=== PATIENT | male | born 1945 | race Caucasian/White ===

== ENCOUNTER 2017-01-06 12:11 | Emergency (ER) | payer MEDICARE, OTHER ==
[~2017-01-06] VITALS: Ht 170.2 cm; Wt 81.8 kg
[~2017-01-06 12:11] MED LIST: BUPR75 PO; HYDR25TA PO; LOSA50TA37 PO; METF500T4 PO; OMEP20 PO; TERA1 PO
[2017-01-06 15:30] LABS: APPEARANCE,URINE TURBID (CLEAR); GLUCOSE, URINE (UA) NEGATIVE (NEGATIVE); KETONES,URINE NEGATIVE (NEGATIVE); LEUKOCYTE ESTERASE ,URINE LARGE (NEGATIVE); OCCULT BLOOD,URINE LARGE (NEGATIVE); PH,URINE 5.5 (5.0-8.0); PROTEIN,URINE TRACE (NEGATIVE)
[2017-01-06 15:33] LABS: ADD UA MICROSCOPIC YES
[2017-01-06 15:34] LABS: RBC,URINE 51-100 /HPF (0-2); SQUAMOUS EPITHELIAL CELL,UR Rare /LPF (None Seen); WBC,URINE >100 /HPF (0-5)
[2017-01-06 16:50] LABS: BASOPHILS # (AUTO) 0.03 K/uL (0.00-0.20); BASOPHILS % (AUTO) 0.5 % (0.0-2.0); EOSINOPHILS # (AUTO) 0.08 K/uL (0.00-0.70); EOSINOPHILS % (AUTO) 1.33 % (1.0-6.0); HEMATOCRIT 38.3 % (41-53); HEMOGLOBIN 12.6 g/dL (13.5-17.5); LYMPHOCYTES # (AUTO) 1.2 K/uL (1.0-4.8); LYMPHOCYTES % (AUTO) 19.6 % (22.0-44.0); MEAN CORPUSCULAR VOLUME 91 fL (80-100); MONOCYTES # (AUTO) 0.4 K/uL (0.1-1.0); MONOCYTES % (AUTO) 6.4 % (2.0-9.0); NEUTROPHILS # (AUTO) 4.4 K/uL (1.8-7.7); NEUTROPHILS % (AUTO) 72.2 % (40.0-70.0); PLATELET COUNT (AUTO) 181 K/uL (150-450); RED CELL DISTRIBUTION WIDTH 12.6 % (11.5-14.5); WHITE BLOOD COUNT (AUTO) 6.1 K/uL (4.5-11.0)
[2017-01-06 16:59] LABS: CREATININE 1.25 mg/dL (0.60-1.30); POTASSIUM 4.2 mmol/L (3.5-5.1)
[2017-01-06 17:07] LABS: ALBUMIN 3.6 g/dL (3.4-5.0); BILIRUBIN,TOTAL 0.7 mg/dL (0.1-1.0); TOTAL PROTEIN, SERUM 8.2 g/dL (6.4-8.2)
[2017-01-06] MEDS ORDERED: CefTRIAXone 1 GM/DEXTROSE 50 ML IV ONE (17:15)
[2017-01-06] MEDS ORDERED: LEVOFLOXACIN 500 MG/D5% WATER 100 ML IV ONE (17:15)
[2017-01-06 19:09] VITALS: BP 118/71
== END 2017-01-06 19:12 | disposition home or self-care (01) ==
LOC: EMS 12:12
DX: N39.0 Urinary tract infection, site not specified (principal); I10 Essential (primary) hypertension; E11.9 Type 2 diabetes mellitus without complications
CPT/HCPCS: 36415; 80053; 81001; 85025; 87040; 87077; 87086; 96365; 96368; 99285; J0696; J1956; 82962

== ENCOUNTER 2018-06-23 18:06 | Inpatient (IN) | payer MEDICARE, OTHER ==
[~2018-06-23] VITALS: Ht 172.7 cm; Wt 95.7 kg
[~2018-06-23 18:06] MED LIST changes: +LOSA50TA25 PO; -LOSA50TA37 PO; +METF-960 PO; -METF500T4 PO
[2018-06-23 18:14] LABS: GLUCOSE,POINT OF CARE 162 MG/DL (70-110)
[2018-06-23] MEDS ORDERED: 0.9% SODIUM CHLORIDE 10 ML SYRINGE IVP PRN (18:45)
[2018-06-23] MEDS ORDERED: SODIUM CHLORIDE 0.9% 1,000 ML IV ONE (19:15)
[2018-06-23 19:21] LABS: BASOPHILS % (AUTO) 0.1 % (0.0-2.0); EOSINOPHILS % (AUTO) 1.1 % (1.0-6.0); HEMATOCRIT 25.1 % (41-53); HEMOGLOBIN 8.8 g/dL (13.5-17.5); LYMPHOCYTES # (AUTO) 0.2 K/uL (1.0-4.8); LYMPHOCYTES % (AUTO) 8.3 % (22.0-44.0); MEAN CORPUSCULAR HEMOGLOBIN 31.9 pg (26.0-34.0); MEAN CORPUSCULAR HGB CONC 35.1 G/dL (31.0-37.0); MEAN CORPUSCULAR VOLUME 91 fL (80-100); MONOCYTES # (AUTO) 0.3 K/uL (0.1-1.0); MONOCYTES % (AUTO) 12.2 % (2.0-9.0); NEUTROPHILS # (AUTO) 1.7 K/uL (1.8-7.7); NEUTROPHILS % (AUTO) 78.3 % (40.0-70.0); PLATELET COUNT (AUTO) 214 K/uL (150-450); RED BLOOD CELL COUNT(AUTO) 2.76 MIL/uL (4.50-5.90); RED CELL DISTRIBUTION WIDTH 12.9 % (11.5-14.5)
[2018-06-23 19:48] LABS: ALBUMIN 2.9 g/dL (3.4-5.0); BILIRUBIN,TOTAL 1.8 mg/dL (0.1-1.0); CALCIUM, TOTAL 7.8 mg/dL (8.8-10.5); CREATININE 1.55 mg/dL (0.60-1.30); POTASSIUM 3.8 mmol/L (3.5-5.1); TOTAL PROTEIN, SERUM 6.5 g/dL (6.4-8.2)
[2018-06-23 20:01] LABS: APPEARANCE,URINE CLOUDY (CLEAR); GLUCOSE, URINE (UA) NEGATIVE (NEGATIVE); KETONES,URINE 15 mg/dL (NEGATIVE); LEUKOCYTE ESTERASE ,URINE SMALL (NEGATIVE); NITRATE,URINE NEGATIVE (NEGATIVE); OCCULT BLOOD,URINE LARGE (NEGATIVE); PROTEIN,URINE POS 1+ (NEGATIVE)
[2018-06-23 20:05] LABS: BILIRUBIN,URINE PRELIM. POSITIVE (NEGATIVE)
[2018-06-23 20:06] LABS: PLATELET MORPHOLOGY COMMENT NORMAL
[2018-06-23 20:08] LABS: BACTERIA,URINE Many /HPF (None Seen); RBC,URINE 26-50 /HPF (0-2); SQUAMOUS EPITHELIAL CELL,UR Few /LPF (None Seen)
[2018-06-23 20:34] LABS: INFLUENZA TYPE A POSITIVE FOR TYPE A (NEGATIVE); INFLUENZA TYPE B NEGATIVE FOR TYPE B (NEGATIVE)
[2018-06-23] MEDS ORDERED: NACL1 PO (20:45)
[2018-06-23] MEDS ORDERED: DIPH50 PO (20:45)
[2018-06-23] MEDS ORDERED: SENN-31 PO (20:45)
[2018-06-23] MEDS ORDERED: CefTRIAXone SODIUM 1 GM in DEXTROSE 5%-WATER 10 ML IV ONE (20:45)
[2018-06-23] MEDS ORDERED: DSS100 PO (20:45)
[2018-06-23] MEDS ORDERED: VITAD1000 PO (20:45)
[2018-06-23] MEDS ORDERED: HYDR25TA PO (20:45)
[2018-06-23] MEDS ORDERED: AMIT50TA3 PO (20:45)
[2018-06-23] MEDS ORDERED: ALFU10TA30 PO (20:45)
[2018-06-23] MEDS ORDERED: MIRALAX PO (20:45)
[2018-06-23] MEDS ORDERED: DULO60CA44 PO (20:45)
[2018-06-23] MEDS ORDERED: GABA-533 PO (20:45)
[2018-06-23] MEDS ORDERED: HYDR-4061 PO (20:45)
[2018-06-23] MEDS ORDERED: FLUT16H NASAL (20:45)
[2018-06-23] MEDS ORDERED: RANI-248 PO (20:45)
[2018-06-23] MEDS ORDERED: METF-446 PO (20:45)
[2018-06-23] MEDS ORDERED: AMLO-511 PO (20:45)
[2018-06-23] MEDS ORDERED: SODIUM CHLORIDE 0.9% 1,500 ML IV ONE (20:45)
[2018-06-23] MEDS ORDERED: SODIUM CHLORIDE 0.9% 100 ML ONE (20:47)
[2018-06-23] MEDS ORDERED: IOVERSOL 320 MG/ML 100 ML VIAL ONE (20:47)
[2018-06-23] MEDS ORDERED: OSELTAMIVIR PHOSPHATE 75 MG CAPSULE PO ONE (21:15)
[2018-06-23 23:09] VITALS: BP 124/85
[2018-06-24] VITALS (7 sets, daily range): BP systolic 109–135; BP diastolic 62–82
[2018-06-24] MEDS ORDERED: ZOLPIDEM TARTRATE 5 MG TABLET PO PRN (00:15)
[2018-06-24] MEDS ORDERED: BISACODYL 10 MG RECTAL RECTAL SUPPOSITORY PR PRN (00:15)
[2018-06-24] MEDS ORDERED: ONDANSETRON HCL 4 MG/2 ML VIAL IVP PRN (00:15)
[2018-06-24] MEDS ORDERED: ACETAMINOPHEN 325 MG TABLET PO PRN (00:15)
[2018-06-24] MEDS ORDERED: PNEUMOCOCCAL VACCINE POLYVALENT 0.5 ML VIAL [PPSV23] IM ONE (01:30)
[2018-06-24] MEDS: MORPHINE SULFATE 2 MG/ML SYRINGE IVP PRN ×2 (02:57→09:16)
[2018-06-24] MEDS: DOCUSATE SODIUM 100 MG CAPSULE PO SCH ×4 (09:00→20:29)
[2018-06-24] MEDS ORDERED: OSELTAMIVIR PHOSPHATE 75 MG CAPSULE PO SCH (09:00)
[2018-06-24] MEDS: AmLODIPine BESYLATE 5 MG TABLET PO SCH (09:01)
[2018-06-24] MEDS: CHOLECALCIFEROL (VIT D3) 1,000 UNITS TABLET PO SCH (09:02)
[2018-06-24] MEDS: GABAPENTIN 300 MG CAPSULE PO SCH ×3 (09:02→20:28)
[2018-06-24] MEDS: ASPIRIN 81 MG EC TABLET PO SCH (09:03)
[2018-06-24] MEDS: PANTOPRAZOLE SODIUM 40 MG/VIAL IVP SCH (09:04)
[2018-06-24] MEDS: FLUTICASONE PROPIONATE 50 MCG/SPRAY 16 GM NASAL SPRAY NASAL SCH (09:05)
[2018-06-24] MEDS: DULoxetine HCL 60 MG CAPSULE PO SCH (09:06)
[2018-06-24] MEDS: AMITRIPTYLINE HCL 50 MG TABLET PO SCH (09:07)
[2018-06-24] MEDS: SODIUM CHLORIDE 1 GM TABLET PO SCH ×3 (09:08→20:29)
[2018-06-24 12:49] LABS: BASOPHILS % (AUTO) 0.1 % (0.0-2.0); EOSINOPHILS % (AUTO) 0.1 % (1.0-6.0); HEMOGLOBIN 8.5 g/dL (13.5-17.5); LYMPHOCYTES # (AUTO) 0.3 K/uL (1.0-4.8); LYMPHOCYTES % (AUTO) 5.9 % (22.0-44.0); MEAN CORPUSCULAR HEMOGLOBIN 32.3 pg (26.0-34.0); MEAN CORPUSCULAR HGB CONC 35.5 G/dL (31.0-37.0); MEAN CORPUSCULAR VOLUME 91 fL (80-100); MONOCYTES # (AUTO) 0.4 K/uL (0.1-1.0); MONOCYTES % (AUTO) 8.2 % (2.0-9.0); NEUTROPHILS # (AUTO) 4.6 K/uL (1.8-7.7); PLATELET COUNT (AUTO) 269 K/uL (150-450); RED BLOOD CELL COUNT(AUTO) 2.65 MIL/uL (4.50-5.90)
[2018-06-24 12:52] LABS: NEUTROPHILS % (AUTO) 85.7 % (40.0-70.0)
[2018-06-24 13:10] LABS: ALBUMIN 2.6 g/dL (3.4-5.0); BILIRUBIN,TOTAL 1.6 mg/dL (0.1-1.0); CALCIUM, TOTAL 7.1 mg/dL (8.8-10.5); CREATININE 1.44 mg/dL (0.60-1.30); TOTAL PROTEIN, SERUM 6.2 g/dL (6.4-8.2)
[2018-06-24] MEDS ORDERED: DEXTROSE 50%-WATER 25 GM/50 ML SYRINGE IVP PRN (16:45)
[2018-06-24] MEDS ORDERED: DEX IS IV SCH (18:00)
[2018-06-24] MEDS ORDERED: PIPERACILLIN SODIUM/TAZOBACTAM 2.25 GM in DEXTROSE 5%-WATER 50 ML IV SCH (18:00)
[2018-06-24] MEDS ORDERED: PIPERACILLIN IV SCH (18:00)
[2018-06-24] MEDS ORDERED: TAZOBACTAM IV SCH (18:00)
[2018-06-24] MEDS ORDERED: SODIUM CHLORIDE 0.9% 500 ML IV ONE ×2 (18:11→18:13)
[2018-06-24] MEDS: SODIUM CHLORIDE 3% 500 ML IV SCH (18:17)
[2018-06-24] MEDS: INSULIN LISPRO 100 UNITS/ML SQ PRN (20:28)
[2018-06-24] MEDS: ALFUZOSIN HCL 10 MG ER TABLET PO SCH (20:28)
[2018-06-24] MEDS: DiphenhydrAMINE HCL 50 MG CAPSULE PO SCH (20:29)
[2018-06-24] MEDS: OSELTAMIVIR PHOSPHATE 30 MG CAPSULE PO SCH (20:31)
[2018-06-24] MEDS ORDERED: CefTRIAXone SODIUM 1 GM in DEXTROSE 5%-WATER 10 ML IV SCH (21:00)
[2018-06-24 21:11] LABS: OSMOLALITY,URINE 511 mOS/kg (50-1200)
[2018-06-24 21:17] LABS: SODIUM,URINE RANDOM < 5 mmol/l (20-110)
[2018-06-24 21:43] LABS: CALCIUM, TOTAL 7.6 mg/dL (8.8-10.5); CREATININE 1.61 mg/dL (0.60-1.30); POTASSIUM 3.9 mmol/L (3.5-5.1)
[2018-06-24] MEDS: PIPERACILLIN/TAZO 3.375 GM/D5W 50 ML IV SCH (23:32)
[2018-06-25] VITALS (11 sets, daily range): BP systolic 69–128; BP diastolic 38–82
[2018-06-25 01:58] LABS: CALCIUM, TOTAL 7.2 mg/dL (8.8-10.5); CREATININE 1.72 mg/dL (0.60-1.30); POTASSIUM 3.8 mmol/L (3.5-5.1)
[2018-06-25] MEDS: INSULIN LISPRO 100 UNITS/ML SQ PRN ×2 (05:53→17:07)
[2018-06-25] MEDS: PIPERACILLIN/TAZO 3.375 GM/D5W 50 ML IV SCH ×3 (06:08→18:53)
[2018-06-25 06:42] LABS: EOSINOPHILS % (AUTO) 0.4 % (1.0-6.0); HEMATOCRIT 22.6 % (41-53); HEMOGLOBIN 8.1 g/dL (13.5-17.5); LYMPHOCYTES # (AUTO) 0.3 K/uL (1.0-4.8); LYMPHOCYTES % (AUTO) 6.4 % (22.0-44.0); MEAN CORPUSCULAR HEMOGLOBIN 32.9 pg (26.0-34.0); MEAN CORPUSCULAR HGB CONC 35.8 G/dL (31.0-37.0); MEAN CORPUSCULAR VOLUME 92 fL (80-100); MONOCYTES # (AUTO) 0.5 K/uL (0.1-1.0); MONOCYTES % (AUTO) 12.6 % (2.0-9.0); NEUTROPHILS # (AUTO) 3.2 K/uL (1.8-7.7); NEUTROPHILS % (AUTO) 80.6 % (40.0-70.0); PLATELET COUNT (AUTO) 258 K/uL (150-450); RED BLOOD CELL COUNT(AUTO) 2.46 MIL/uL (4.50-5.90); RED CELL DISTRIBUTION WIDTH 13.8 % (11.5-14.5)
[2018-06-25 06:50] LABS: ALBUMIN 2.5 g/dL (3.4-5.0); BILIRUBIN,TOTAL 1.5 mg/dL (0.1-1.0); CALCIUM, TOTAL 7.6 mg/dL (8.8-10.5); CREATININE 1.91 mg/dL (0.60-1.30); POTASSIUM 3.9 mmol/L (3.5-5.1); TOTAL PROTEIN, SERUM 5.9 g/dL (6.4-8.2)
[2018-06-25 07:17] LABS: THYROID STIMULATING HORMONE 0.99 uIU/mL (0.36-3.74)
[2018-06-25 07:27] LABS: MAGNESIUM 2.1 mg/dL (1.80-2.40); PHOSPHORUS 3.9 mg/dL (2.5-4.9)
[2018-06-25] MEDS: HYDROCODONE/ACETAMINOPHEN 5-325 MG TABLET PO PRN (08:55)
[2018-06-25] MEDS: GABAPENTIN 300 MG CAPSULE PO SCH ×3 (08:55→22:52)
[2018-06-25] MEDS: CHOLECALCIFEROL (VIT D3) 1,000 UNITS TABLET PO SCH (08:56)
[2018-06-25] MEDS: DOCUSATE SODIUM 100 MG CAPSULE PO SCH ×3 (08:56→22:35)
[2018-06-25] MEDS: ASPIRIN 81 MG EC TABLET PO SCH (08:56)
[2018-06-25] MEDS: SODIUM CHLORIDE 1 GM TABLET PO SCH ×3 (08:57→22:35)
[2018-06-25] MEDS: DULoxetine HCL 60 MG CAPSULE PO SCH (08:57)
[2018-06-25] MEDS: FLUTICASONE PROPIONATE 50 MCG/SPRAY 16 GM NASAL SPRAY NASAL SCH (08:57)
[2018-06-25] MEDS: AMITRIPTYLINE HCL 50 MG TABLET PO SCH (08:58)
[2018-06-25] MEDS: AmLODIPine BESYLATE 5 MG TABLET PO SCH (08:59)
[2018-06-25] MEDS ORDERED: OSELTAMIVIR PHOSPHATE 30 MG CAPSULE PO SCH (09:00)
[2018-06-25] MEDS: PANTOPRAZOLE SODIUM 40 MG/VIAL IVP SCH (09:00)
[2018-06-25] MEDS: SODIUM CHLORIDE 3% 500 ML IV SCH ×2 (09:01→20:00)
[2018-06-25] MEDS: OSELTAMIVIR PHOSPHATE 30 MG CAPSULE PO SCH ×2 (09:02→22:52)
[2018-06-25] MEDS ORDERED: SODIUM CHLORIDE 0.9% 1,000 ML IV ONE (10:41)
[2018-06-25] MEDS ORDERED: 0.9% SODIUM CHLORIDE 5 ML NEB SOLUTION NEB ONE (11:20)
[2018-06-25 12:20] LABS: GLUCOMETER DEV NAME(LOC) 5N 1P; GLUCOSE,POINT OF CARE 148 MG/DL (70-110)
[2018-06-25] MEDS ORDERED: SODIUM CHLORIDE 0.9% 250 ML IV ONE (13:19)
[2018-06-25] MEDS: NOREPINEPHRINE 4 MG/D5%-WATER 250 ML IV PRN (13:28)
[2018-06-25 13:42] LABS: ABG A-A DIFF O2 68.9 mmHg (10-20.0); ABG CARBOXYHEMOGLOBIN 1.7 % (0.0-1.5); ABG HCO3 17.1 mmol/L (22.0-26.0); ABG METHEMOGLOBIN 0.7 % (0.0-1.5); ABG OXYHEMOGLOBIN 94.7 % (94.0-100.0); ABG PCO2 31 mmHg (35-45); ABG PH 7.336 (7.35-7.450); ABG TOTAL HEMOGLOBIN 8.1 G/dL (12.0-18.0); O2 DEVICE,BLOOD GAS CANNULA (ROOM AIR); PO2, ARTERIAL BG 95.2 mmHg (75.0-83.0); SITE, BLOOD GAS LFT RADIAL; SOURCE, BLOOD GAS ARTERIAL; TEMPERATURE, FAHRENHEIT, BG 97.6 FAHREN (96.0-98.6)
[2018-06-25] MEDS ORDERED: RINGERS SOLUTION,LACTATED 1,000 ML IV ONE (13:47)
[2018-06-25] MEDS ORDERED: SODIUM CHLORIDE 0.9% 500 ML IV ONE (13:57)
[2018-06-25] MEDS: LEVOFLOXACIN 750 MG/D5% WATER 150 ML IV SCH (14:05)
[2018-06-25] MEDS: RINGERS SOLUTION,LACTATED 1,000 ML IV SCH ×2 (14:05→16:13)
[2018-06-25] MEDS: IPRATROPIUM BROMIDE 0.5 MG/2.5 ML NEB SOLUTION NEB PRN ×2 (17:20→21:31)
[2018-06-25] MEDS: ALBUTEROL SULFATE 2.5 MG/0.5 ML NEB SOLUTION NEB PRN ×2 (17:21→21:31)
[2018-06-25] MEDS ORDERED: VANCOMYCIN HCL 1 GM/D5% WATER 200 ML IV PRN (17:30)
[2018-06-25] MEDS ORDERED: VANCOMYCIN HCL 1 GM/D5% WATER 200 ML IV ONE (18:00)
[2018-06-25 18:59] LABS: GLUCOSE,POINT OF CARE 169 MG/DL (70-110)
[2018-06-25] MEDS: IPRATROPIUM BROMIDE 0.5 MG/2.5 ML NEB SOLUTION NEB SCH (21:32)
[2018-06-25] MEDS: ALBUTEROL SULFATE 2.5 MG/0.5 ML NEB SOLUTION NEB SCH (21:32)
[2018-06-25] MEDS ORDERED: VANCOMYCIN HCL 750 MG in DEXTROSE 5%-WATER 250 ML IV ONE (22:00)
[2018-06-25] MEDS: ALFUZOSIN HCL 10 MG ER TABLET PO SCH (22:35)
[2018-06-25] MEDS: DiphenhydrAMINE HCL 50 MG CAPSULE PO SCH (22:35)
[2018-06-26] VITALS: BP 99/71
[2018-06-26] MEDS: NOREPINEPHRINE 4 MG/D5%-WATER 250 ML IV PRN ×3 (00:28→23:15)
[2018-06-26] MEDS: PIPERACILLIN/TAZO 3.375 GM/D5W 50 ML IV SCH ×5 (00:52→23:14)
[2018-06-26] MEDS: IPRATROPIUM BROMIDE 0.5 MG/2.5 ML NEB SOLUTION NEB SCH ×6 (03:33→22:27)
[2018-06-26] MEDS: ALBUTEROL SULFATE 2.5 MG/0.5 ML NEB SOLUTION NEB SCH ×6 (03:33→22:27)
[2018-06-26 04:00] VITALS: BP 112/73
[2018-06-26 05:02] LABS: BASOPHILS % (AUTO) 0.1 % (0.0-2.0); EOSINOPHILS % (AUTO) 0.3 % (1.0-6.0); HEMOGLOBIN 8.7 g/dL (13.5-17.5); LYMPHOCYTES # (AUTO) 0.2 K/uL (1.0-4.8); LYMPHOCYTES % (AUTO) 3.3 % (22.0-44.0); MEAN CORPUSCULAR HEMOGLOBIN 32.6 pg (26.0-34.0); MEAN CORPUSCULAR HGB CONC 36.2 G/dL (31.0-37.0); MEAN CORPUSCULAR VOLUME 90 fL (80-100); MONOCYTES # (AUTO) 0.7 K/uL (0.1-1.0); MONOCYTES % (AUTO) 10.7 % (2.0-9.0); NEUTROPHILS # (AUTO) 5.6 K/uL (1.8-7.7); PLATELET COUNT (AUTO) 299 K/uL (150-450); RED BLOOD CELL COUNT(AUTO) 2.66 MIL/uL (4.50-5.90); RED CELL DISTRIBUTION WIDTH 14.1 % (11.5-14.5)
[2018-06-26] MEDS: SODIUM CHLORIDE 3% 500 ML IV SCH (05:12)
[2018-06-26 05:34] LABS: NEUTROPHILS % (AUTO) 85.6 % (40.0-70.0)
[2018-06-26 06:49] LABS: GLUCOSE,POINT OF CARE 207 MG/DL (70-110)
[2018-06-26 07:21] LABS: ALBUMIN 2.3 g/dL (3.4-5.0); BILIRUBIN,TOTAL 1.4 mg/dL (0.1-1.0); CALCIUM, TOTAL 7.4 mg/dL (8.8-10.5); CREATININE 2.32 mg/dL (0.60-1.30); PHOSPHORUS 3.5 mg/dL (2.5-4.9); POTASSIUM 3.7 mmol/L (3.5-5.1); TOTAL PROTEIN, SERUM 5.8 g/dL (6.4-8.2)
[2018-06-26] MEDS ORDERED: SODIUM CHLORIDE 3% 500 ML IV SCH (07:30)
[2018-06-26 08:00] VITALS: BP 123/71
[2018-06-26] MEDS: FLUTICASONE PROPIONATE 50 MCG/SPRAY 16 GM NASAL SPRAY NASAL SCH (08:21)
[2018-06-26] MEDS: SODIUM CHLORIDE 1 GM TABLET PO SCH ×3 (08:21→21:01)
[2018-06-26] MEDS: CHOLECALCIFEROL (VIT D3) 1,000 UNITS TABLET PO SCH (08:21)
[2018-06-26] MEDS: GABAPENTIN 300 MG CAPSULE PO SCH ×3 (08:21→21:01)
[2018-06-26] MEDS: OSELTAMIVIR PHOSPHATE 30 MG CAPSULE PO SCH ×2 (08:21→21:21)
[2018-06-26] MEDS: AMITRIPTYLINE HCL 50 MG TABLET PO SCH (08:22)
[2018-06-26] MEDS: DOCUSATE SODIUM 100 MG CAPSULE PO SCH ×2 (08:22→21:01)
[2018-06-26] MEDS: DULoxetine HCL 60 MG CAPSULE PO SCH (08:23)
[2018-06-26] MEDS: ASPIRIN 81 MG EC TABLET PO SCH (08:23)
[2018-06-26] MEDS: AmLODIPine BESYLATE 5 MG TABLET PO SCH (08:24)
[2018-06-26] MEDS: PANTOPRAZOLE SODIUM 40 MG/VIAL IVP SCH (08:25)
[2018-06-26 11:54] LABS: GLUCOSE,POINT OF CARE 143 MG/DL (70-110)
[2018-06-26 12:00] VITALS: BP 120/71
[2018-06-26] MEDS: INSULIN LISPRO 100 UNITS/ML SQ PRN ×3 (13:15→18:02)
[2018-06-26] MEDS ORDERED: SODIUM CHLORIDE 0.9% 500 ML IV ONE ×2 (13:56→20:10)
[2018-06-26] MEDS ORDERED: GABA-531 PO (14:12)
[2018-06-26 16:00] VITALS: BP 139/34
[2018-06-26 17:34] LABS: GLUCOSE,POINT OF CARE 156 MG/DL (70-110)
[2018-06-26 17:58] LABS: GLUCOSE,POINT OF CARE 158 MG/DL (70-110)
[2018-06-26] MEDS ORDERED: DEXTROSE 5%-WATER 250 ML IV ONE (20:00)
[2018-06-26] MEDS ORDERED: VASOPRESSIN 40 UNITS in DEXTROSE 5%-WATER 98 ML IV PRN (20:00)
[2018-06-26] MEDS ORDERED: SODIUM CHLORIDE 0.9% 250 ML IV ONE (20:09)
[2018-06-26] MEDS: ALFUZOSIN HCL 10 MG ER TABLET PO SCH (21:01)
[2018-06-26] MEDS: DiphenhydrAMINE HCL 50 MG CAPSULE PO SCH (21:01)
[2018-06-26] MEDS: MAGNESIUM HYDROXIDE SUSPENSION 30 ML UDCUP PO PRN (21:02)
[2018-06-26 21:03] VITALS: BP 112/31
[2018-06-26] MEDS: HYDROCODONE/ACETAMINOPHEN 5-325 MG TABLET PO PRN (21:03)
[2018-06-26 23:08] LABS: APPEARANCE,URINE CLOUDY (CLEAR); GLUCOSE, URINE (UA) NEGATIVE (NEGATIVE); KETONES,URINE TRACE mg/dL (NEGATIVE); LEUKOCYTE ESTERASE ,URINE SMALL (NEGATIVE); NITRATE,URINE NEGATIVE (NEGATIVE); OCCULT BLOOD,URINE LARGE (NEGATIVE); PROTEIN,URINE POS 1+ (NEGATIVE)
[2018-06-26 23:12] LABS: CREATININE,URINE RANDOM 175.8 mg/dL (30.0-125.0)
[2018-06-26 23:14] LABS: BILIRUBIN,URINE PRELIM. POSITIVE (NEGATIVE)
[2018-06-26 23:16] LABS: BACTERIA,URINE Moderate /HPF (None Seen); TRANSITIONAL EPI CELLS,URINE Moderate /LPF (None Seen)
[2018-06-27] VITALS (15 sets, daily range): BP systolic 89–170; BP diastolic 20–58
[2018-06-27] MEDS: ALBUTEROL SULFATE 2.5 MG/0.5 ML NEB SOLUTION NEB SCH ×4 (02:40→15:12)
[2018-06-27] MEDS: IPRATROPIUM BROMIDE 0.5 MG/2.5 ML NEB SOLUTION NEB SCH ×4 (02:40→15:12)
[2018-06-27 05:01] LABS: BASOPHILS % (AUTO) 0.1 % (0.0-2.0); EOSINOPHILS % (AUTO) 0.2 % (1.0-6.0); HEMATOCRIT 23.1 % (41-53); HEMOGLOBIN 8.1 g/dL (13.5-17.5); LYMPHOCYTES # (AUTO) 0.2 K/uL (1.0-4.8); LYMPHOCYTES % (AUTO) 3.9 % (22.0-44.0); MEAN CORPUSCULAR HGB CONC 35.2 G/dL (31.0-37.0); MEAN CORPUSCULAR VOLUME 91 fL (80-100); MONOCYTES # (AUTO) 0.8 K/uL (0.1-1.0); MONOCYTES % (AUTO) 12.8 % (2.0-9.0); NEUTROPHILS # (AUTO) 4.9 K/uL (1.8-7.7); PLATELET COUNT (AUTO) 306 K/uL (150-450); RED BLOOD CELL COUNT(AUTO) 2.54 MIL/uL (4.50-5.90); RED CELL DISTRIBUTION WIDTH 14.3 % (11.5-14.5)
[2018-06-27 05:15] LABS: ALBUMIN 2.1 g/dL (3.4-5.0); BILIRUBIN,TOTAL 1.4 mg/dL (0.1-1.0); CALCIUM, TOTAL 7.7 mg/dL (8.8-10.5); CREATININE 2.88 mg/dL (0.60-1.30); MAGNESIUM 2.2 mg/dL (1.80-2.40); PHOSPHORUS 4.6 mg/dL (2.5-4.9); POTASSIUM 3.9 mmol/L (3.5-5.1); TOTAL PROTEIN, SERUM 5.7 g/dL (6.4-8.2)
[2018-06-27] MEDS: PIPERACILLIN/TAZO 3.375 GM/D5W 50 ML IV SCH ×2 (06:15→13:00)
[2018-06-27] MEDS: INSULIN LISPRO 100 UNITS/ML SQ PRN ×2 (06:16→13:16)
[2018-06-27 06:34] LABS: GLUCOSE,POINT OF CARE 123 MG/DL (70-110)
[2018-06-27 07:24] LABS: GLUCOSE,POINT OF CARE 148 MG/DL (70-110)
[2018-06-27] MEDS: AMITRIPTYLINE HCL 50 MG TABLET PO SCH (09:00)
[2018-06-27] MEDS: DULoxetine HCL 60 MG CAPSULE PO SCH (09:00)
[2018-06-27] MEDS: ALBUTEROL SULFATE 2.5 MG/0.5 ML NEB SOLUTION NEB PRN (09:05)
[2018-06-27] MEDS: IPRATROPIUM BROMIDE 0.5 MG/2.5 ML NEB SOLUTION NEB PRN (09:05)
[2018-06-27 09:35] LABS: VANCOMYCIN,RANDOM 10.2 mcg/mL (25.0-50.0)
[2018-06-27] MEDS: ALBUMIN HUMAN 25%-25GM/100ML 100 ML IV SCH ×2 (09:59→16:23)
[2018-06-27] MEDS: CHOLECALCIFEROL (VIT D3) 1,000 UNITS TABLET PO SCH (10:08)
[2018-06-27] MEDS: OSELTAMIVIR PHOSPHATE 30 MG CAPSULE PO SCH (10:08)
[2018-06-27] MEDS: SODIUM CHLORIDE 1 GM TABLET PO SCH ×2 (10:08→16:00)
[2018-06-27] MEDS: ASPIRIN 81 MG EC TABLET PO SCH (10:08)
[2018-06-27] MEDS: MAGNESIUM HYDROXIDE SUSPENSION 30 ML UDCUP PO PRN (10:08)
[2018-06-27] MEDS: PANTOPRAZOLE SODIUM 40 MG/VIAL IVP SCH (10:08)
[2018-06-27] MEDS: FLUTICASONE PROPIONATE 50 MCG/SPRAY 16 GM NASAL SPRAY NASAL SCH (10:08)
[2018-06-27] MEDS: DOCUSATE SODIUM 100 MG CAPSULE PO SCH (10:09)
[2018-06-27] MEDS ORDERED: VANCOMYCIN HCL 750 MG in DEXTROSE 5%-WATER 250 ML IV ONE (11:00)
[2018-06-27] MEDS: NOREPINEPHRINE 4 MG/D5%-WATER 250 ML IV PRN (13:01)
[2018-06-27] MEDS: LEVOFLOXACIN 750 MG/D5% WATER 150 ML IV SCH (14:05)
[2018-06-27] MEDS ORDERED: SODIUM CHLORIDE 0.9% 250 ML IV ONE ×2 (14:23→18:01)
[2018-06-27 14:28] LABS: HEMOGLOBIN 7.3 g/dL (13.5-17.5)
[2018-06-27 14:29] LABS: HEMATOCRIT 21.2 % (41-53)
[2018-06-27 14:34] LABS: CALCIUM, TOTAL 7.4 mg/dL (8.8-10.5); CREATININE 3.34 mg/dL (0.60-1.30); POTASSIUM 4.1 mmol/L (3.5-5.1)
[2018-06-27 15:00] LABS: GLUCOSE,POINT OF CARE 148 MG/DL (70-110)
[2018-06-27] MEDS: HYDROCODONE/ACETAMINOPHEN 5-325 MG TABLET PO PRN (15:05)
[2018-06-27] MEDS ORDERED: RAPID SEQUENCE KIT [RSI] 1 EACH KIT ONE (16:44)
[2018-06-27 17:48] LABS: ABG A-A DIFF O2 507.5 mmHg (10-20.0); ABG BASE EXCESS -10.3 mmol/L (-2.0-3.0); ABG CARBOXYHEMOGLOBIN 1.3 % (0.0-1.5); ABG HCO3 16.6 mmol/L (22.0-26.0); ABG METHEMOGLOBIN 0.4 % (0.0-1.5); ABG OXYGEN CONTENT 10.2 mL/dL (15.0-23.0); ABG OXYGEN SATURATION 98.9 % (95.0-98.0); ABG OXYHEMOGLOBIN 97.2 % (94.0-100.0); ABG PCO2 56 mmHg (35-45); ABG PH 7.144 (7.35-7.450); ABG TOTAL HEMOGLOBIN 7.2 G/dL (12.0-18.0); PO2, ARTERIAL BG 150.7 mmHg (75.0-83.0); SOURCE, BLOOD GAS ARTERIAL
[2018-06-27 17:49] LABS: O2 DEVICE,BLOOD GAS VENTILATOR (ROOM AIR); PEEP,BG 5 cm H2O; SITE, BLOOD GAS ARTERIAL LINE; VT, ABG 550 ml
[2018-06-27] MEDS ORDERED: SODIUM BICARBONATE [ADULT] 8.4% 50 MEQ/50 ML SYRINGE IVP ONE ×2 (18:00→19:04)
[2018-06-27] MEDS ORDERED: ETOMIDATE 2 MG/ML 10 ML VIAL IVP ONE (19:04)
[2018-06-27] MEDS ORDERED: VECURONIUM BROMIDE 10 MG/VIAL IVP ONE (19:04)
[2018-06-27] MEDS ORDERED: EPINEPHrine 1:1,000 [1 MG/ML] AMP SQ ONE (19:04)
[2018-06-27 20:34] LABS: GLUCOMETER DEV NAME(LOC) 5S 1M; GLUCOSE,POINT OF CARE 155 MG/DL (70-110)
[2018-06-27 20:34] LABS: GLUCOMETER DEV NAME(LOC) 5S 1M; GLUCOSE,POINT OF CARE 136 MG/DL (70-110)
[2018-06-27] MEDS ORDERED: GABAPENTIN 300 MG CAPSULE PO SCH (21:00)
[2018-06-27] MEDS ORDERED: SODIUM BICARBONATE 650 MG TABLET PO SCH (21:00)
[2018-06-28 13:04] LABS: GLUCOMETER DEV NAME(LOC) 5S 2Q; GLUCOSE,POINT OF CARE 140 MG/DL (70-110)
== END 2018-06-27 19:05 | disposition short-term general hospital (02) | DRG 698 ==
LOC: EMS 18:06 → 5S 20:00 → ICU 06-25 12:10
PROVIDERS: ADMIT Hospitalist; ATTEND Hospitalist
PROC: 05HM33Z Insertion of Infusion Device into Right Internal Jugular Vein, Percutaneous Approach (ICD-10-PCS; principal; 2018-06-25)
PROC: B543ZZA Ultrasonography of Right Jugular Veins, Guidance (ICD-10-PCS; 2018-06-25)
PROC: 30233N1 Transfusion of Nonautologous Red Blood Cells into Peripheral Vein, Percutaneous Approach (ICD-10-PCS; 2018-06-25)
PROC: 30233L1 Transfusion of Nonautologous Fresh Plasma into Peripheral Vein, Percutaneous Approach (ICD-10-PCS; 2018-06-27)
PROC: 30233K1 Transfusion of Nonautologous Frozen Plasma into Peripheral Vein, Percutaneous Approach (ICD-10-PCS; 2018-06-27)
PROC: 5A12012 Performance of Cardiac Output, Single, Manual (ICD-10-PCS; 2018-06-27)
PROC: 0BH17EZ Insertion of Endotracheal Airway into Trachea, Via Natural or Artificial Opening (ICD-10-PCS; 2018-06-27)
PROC: 5A1935Z Respiratory Ventilation, Less than 24 Consecutive Hours (ICD-10-PCS; 2018-06-27)
DX: T83.518A Infection and inflammatory reaction due to other urinary catheter, initial encounter (principal); A41.59 Other Gram-negative sepsis; E43 Unspecified severe protein-calorie malnutrition; J96.00 Acute respiratory failure, unspecified whether with hypoxia or hypercapnia; I46.9 Cardiac arrest, cause unspecified; R65.21 Severe sepsis with septic shock; J10.00 Influenza due to other identified influenza virus with unspecified type of pneumonia; N17.0 Acute kidney failure with tubular necrosis; E87.1 Hypo-osmolality and hyponatremia; E22.2 Syndrome of inappropriate secretion of antidiuretic hormone; G93.40 Encephalopathy, unspecified; C64.2 Malignant neoplasm of left kidney, except renal pelvis; N39.0 Urinary tract infection, site not specified; N13.8 Other obstructive and reflux uropathy; N99.841 Postprocedural hematoma of a genitourinary system organ or structure following other procedure; K56.7 Ileus, unspecified; Y83.8 Other surgical procedures as the cause of abnormal reaction of the patient, or of later complication, without mention of misadventure at the time of the procedure; Y82.8 Other medical devices associated with adverse incidents; Y84.6 Urinary catheterization as the cause of abnormal reaction of the patient, or of later complication, without mention of misadventure at the time of the procedure; Z90.5 Acquired absence of kidney; Z83.3 Family history of diabetes mellitus; N40.0 Benign prostatic hyperplasia without lower urinary tract symptoms; G89.29 Other chronic pain; M54.9 Dorsalgia, unspecified; K74.60 Unspecified cirrhosis of liver; D50.0 Iron deficiency anemia secondary to blood loss (chronic); E11.22 Type 2 diabetes mellitus with diabetic chronic kidney disease; I12.9 Hypertensive chronic kidney disease with stage 1 through stage 4 chronic kidney disease, or unspecified chronic kidney disease; N18.9 Chronic kidney disease, unspecified; R31.0 Gross hematuria; D72.819 Decreased white blood cell count, unspecified; E78.5 Hyperlipidemia, unspecified; E86.0 Dehydration; N40.1 Benign prostatic hyperplasia with lower urinary tract symptoms; Z68.32 Body mass index [BMI] 32.0-32.9, adult; Z85.528 Personal history of other malignant neoplasm of kidney
CPT/HCPCS: 70450; 74177; 82533; 82570; 82805; 83605; 83735; 83935; 84100; 84145; 84295; 84300; 84443; 84540; 85014; 85018; 86850; 86900; 86901; 86920; 86927; 87040; 87070; 87081; 87086; 87205; 87804; 92950; 93005; 93306; 93880; 94002; 94640; 94799; 96365; 99291; C9113; J0171; J0696; J1956; J2270; J2543; J3370; J3490; J7030; J7040; J7050; J7060; J7120; P9016; P9017; P9046